=== PATIENT | male | born 1985 | race Caucasian/White ===

== ENCOUNTER 2016-08-31 01:00 | Inpatient (IN) | payer OTHER ==
--- NOTE | ~2016-08-31 | DS ---
Unit #: [id number] #: [id number] Patient: BRYSON PEREZ [id number] [facility] [address] [place] [address] [id number] MR#: [id number] NAME: BRYSON PEREZ. ROOM: [facility] Age: 31 Sex: M Admission Date: 08/31/2016 : 1985 Discharge Date: 09/02/2016 Attending Physician: Azar Rock M.D. Primary Care Physician: Kecia London D.O. DISCHARGE SUMMARY REASON FOR ADMISSION Aggression and substance abuse. DIAGNOSTIC STUDIES LABORATORY RESULTS: Urine drug screen positive for marijuana. HOSPITAL COURSE The patient was admitted to inpatient unit on 08/31/2016 and discharged on 09/02/2016. The patient was treated on the inpatient unit with group therapy, individual therapy, medication management, chemical dependency group. The patient responded well with the above modalities of treatment and treated with Vistaril and Neurontin. The patient showed improvement in his mood and affect, maintained safe behavior. Denied any suicidal or homicidal ideation. Denied any psychotic symptom. Subsequently, the patient was discharged with a plan to follow up in outpatient program. DISCHARGE MEDICATIONS Vistaril 50 mg t.i.d. for anxiety and Neurontin 100 mg t.i.d. for anxiety and mood stabilization. DISCHARGE DIAGNOSES Psychiatric: 1. Mood disorder, not otherwise specified, F32.9. 2. Alcohol use disorder, severe F10.20. 3. Cocaine use disorder, moderate to severe, F14.20. 4. Cannabis abuse, moderate, F12.20. Secondary diagnosis: Deferred. Medical diagnosis: Cerebral palsy. Stressors: Psychosocial stressors. DISCHARGE INSTRUCTIONS The patient to follow up in outpatient clinic as per adoption social worker. CONDITION ON DISCHARGE The patient was pleasant and cooperative. Denied any psychotic symptom or any suicidal ideation. PROGNOSIS Guarded. DIET AND ACTIVITY Unit #: [id number] #: [id number] Patient: BRYSON PEREZ As tolerated. Dictated by... Azar Rock M.D. SZC/yandell TD: 09/03/2016 04:53 JOB #: [id number] DISCHARGE SUMMARY Page 1 of 1 X Azar oRck MD DISCHARGE SUMMARY
--- NOTE | ~2016-08-31 | HP ---
Unit #: [id number] #: [id number] Patient: BRYSON PEREZ [id number] [facility] [address] [place] [address] [id number] MR#: [id number] NAME: BRYSON PEREZ. ROOM: P214 Age: 31 Sex: M Admission Date: 08/31/2016 : 1985 Attending Physician: Azar Rock M.D. Admitting Physician: Azar Rock M.D. Primary Care Physician: Kecia London D.O. HISTORY AND PHYSICAL HISTORY OF PRESENT ILLNESS The patient is a 31-year-old male who is here on a 72 hour hold after presenting to [facility] due to stating he is attempting or going to attempt suicide. Past history of PTSD and the mental inquest warrant was taken out by his girlfriend. PAST MEDICAL HISTORY None. PAST SURGICAL HISTORY None. ALLERGIES Penicillin and Cipro. SOCIAL HISTORY Positive for alcohol, marijuana, cocaine. FAMILY HISTORY Noncontributory. REVIEW OF SYSTEMS CONSTITUTIONAL: No fever or chills. HEENT: Denies any sore throat, ear pain or runny nose. CARDIOVASCULAR: Denies chest pain, irregular heart rhythm or palpitations. CHEST: Denies shortness of breath or cough. No hemoptysis. GASTROINTESTINAL: Denies nausea, vomiting, diarrhea or chronic constipation. ENDOCRINE: Denies history of increased thirst or urination. No recent significant weight loss or gain. GENITOURINARY: Denies dysuria, frequency, or hematuria. SKIN: Denies any rashes. HEMATOLOGIC: Denies history of increased bleeding or bruising. MUSCULOSKELETAL: Denies any hot, swollen joints. No generalized muscle pain. NEUROLOGIC: Denies problems with vision or speech. No frequent, severe headaches. No numbness, tingling or weakness in any extremities. Denies loss of bladder or bowel control. CURRENT MEDICATIONS None. PHYSICAL EXAMINATION Unit #: [id number] #: [id number] Patient: BRYSON PEREZ GENERAL: Alert, oriented, in no acute distress. VITAL SIGNS: Temperature 97.6, blood pressure 135/89, heart rate 89, respirations 16. HEIGHT: 5 feet 8 inches. WEIGHT: 130 pounds. SKIN: Tattoo to the right upper arm, left chest. Red area to the back. Tattoos to the left upper arm and red area to the left fifth toe. HEENT: Normocephalic. TMs not viewed. Oral and nasal passages clear. Conjunctivae clear. PERRLA. EOMs intact. NECK: Supple without lymphadenopathy or thyromegaly. HEART: Regular rate and rhythm without murmur. LUNGS: Clear. ABDOMEN: Soft, nontender, without masses or hepatosplenomegaly. : Not done. EXTREMITIES: No evidence of cyanosis, clubbing or edema. Moves all without focal deficit. NEUROLOGICAL: Grossly within normal limits. Cranial Nerves: II: Visual aguilar are intact. III, IV AND : Extraocular movements are intact. Pupils are equal, round and reactive to light. V: Facial sensation is grossly normal. VII: Facial movements and expression are normal. VIII: Auditory acuity grossly intact. IX, X: Uvula is midline. Phonation is normal. XI: Patient shrugs shoulders and turns head normally. XII: Tongue protrudes in the midline. Sensory and Motor Function: Sensory and motor sensation is grossly normal. Motor: moves all extremities well. Coordination: Gait is normal. Deep Tendon Reflexes: Intact. IMPRESSION Psychiatric admission. RECOMMENDATIONS PSYCHIATRIC: Per psychiatrist. MEDICAL: No contraindications to participate in facility's activities. MEDICAL PROGNOSIS Good. Dictated by... Marleni Mott/nettie TD: 08/31/2016 20:46 JOB #: [id number] Unit #: [id number] #: [id number] Patient: BRYSON PEREZ HISTORY AND PHYSICAL Page 1 of 1 X Najma Watson APR X HISTORY AND PHYSICAL
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
--- NOTE | ~2016-08-31 | PN ---
Unit #: [id number] #: [id number] Patient: BRYSON NEWELL [id number] [facility] [address] [place] [address] [id number] MR#: [id number] NAME: BRYSON NEWELL. ROOM: P214 Age: 31 Sex: M Admission Date: 08/31/2016 : 1985 Attending Physician: Azar Rock M.D. Admitting Physician: Azar Rock M.D. Primary Care Physician: Aiyana Patel PROGRESS NOTES DATE 09/01/2016 DISCUSSION Bryson Newell is a 31-year-old male, patient seen on 09/01/2016. The patient pleasant, cooperative, and redirectable, reported having problem with the anxiety, able to maintain safe behavior, no aggression. The patient denied any thoughts of harming self or others. Compliant and cooperative on the unit. REVIEW OF SYSTEMS Complete review of systems unremarkable. MENTAL STATUS EXAMINATION General appearance: Patient dressed casually in hospital attire. Attention span and concentration, fair. Oriented to time, place, and person. Mood and affect, sad and dysphoric. Speech, regular rate. Thought process, goal-directed. The patient denied any thoughts of harming self or others. Recent and remote memory, poor. Insight and judgment, poor. DIAGNOSES 1. Mood disorder, NOS. 2. Alcohol use disorder, severe. 3. Cannabis abuse, moderate. 4. Cocaine abuse, moderate. ASSESSMENT/PLAN Advised to continue with the current medication and therapeutic protocol, and if needed consider further adjustment of medication. Dictated by... Arianna Tate/antoine TD: 09/02/2016 10:58 JOB #: [id number] Unit #: [id number] #: [id number] Patient: BRYSON NEWELL PROGRESS NOTES Page 1 of 1 X Azar Rock MD PROGRESS NOTE
[~2016-08-31 01:00] MED LIST: CLEOCIN HCL300 M1 PO; E-MYCIN250 MG PO
[2016-09-02 10:14] LABS: URINE APPEARANCE CLEAR; URINE BILIRUBIN NEG (NEG); URINE BLOOD NEG (NEG); URINE COLOR DK YELLOW; URINE GLUCOSE NEG (NEG); URINE KETONE NEG (NEG); URINE LEUKOCYTE ESTERASE NEG (NEG); URINE NITRATE NEG (NEG); URINE PH 5.5 (5-8); URINE PROTEIN NEG (NEG); URINE SPECIFIC GRAVITY 1.023 (1.003-1.035)
[2016-09-06 01:06] LABS: HA AB IGM (HEPPAN) Nonreactive (()); HB CORE AB IGM (HEPPAN) Nonreactive (Nonreactive); HB S AG (HEPPAN) Nonreactive (Nonreactive); HEP C AB (HEPPAN) Nonreactive (Nonreactive); HEP C AB SIGNAL TO CUTOFF 0.01 ratio (<1.00)
== END 2016-09-02 13:28 | DRG 885 ==
LOC: P2S 05:22
PROVIDERS: Psychiatry & Neurology Psychiatry
PROC: HZ2ZZZZ Detoxification Services for Substance Abuse Treatment (ICD-10-PCS; principal; 2016-08-31)
DX: F39 Unspecified mood [affective] disorder (principal); F14.20 Cocaine dependence, uncomplicated; F10.20 Alcohol dependence, uncomplicated; G80.9 Cerebral palsy, unspecified; F12.20 Cannabis dependence, uncomplicated
CPT/HCPCS: 80074; 80164; 81003; 86592